=== PATIENT | female | born 1975 | race Caucasian/White ===

== ENCOUNTER → 2017-10-26 | Outpatient (CLI) | payer BC | LOC: COL.RAD 10:47 | DX: M25.541 Pain in joints of right hand (principal) | CPT/HCPCS: J3301; Q9967 ==

== ENCOUNTER → 2018-07-18 | Outpatient (CLI) | payer BC | LOC: COL.RAD 09:15 | DX: M79.644 Pain in right finger(s) (principal) | CPT/HCPCS: J3301; Q9967 ==

== ENCOUNTER → 2019-01-05 | Outpatient (CLI) | payer BC | LOC: COL.RAD 08:51 | DX: M79.644 Pain in right finger(s) (principal) | CPT/HCPCS: J3301; Q9967 ==

== ENCOUNTER → 2019-04-04 | Outpatient (CLI) | payer BC | LOC: COL.RAD 04-03 08:00 | DX: M79.644 Pain in right finger(s) (principal) | CPT/HCPCS: J3301; Q9967 ==

== ENCOUNTER 2019-05-27 20:31 | Emergency (ER) | payer BC ==
[~2019-05-27] VITALS: Ht 160 cm; Wt 86.4 kg
[2019-05-27 20:48] VITALS: BP 138/79; TEMP 98.2
[2019-05-28] MEDS ORDERED: RIOMET500 MG/5 M PO (01:06)
[2019-05-28] MEDS ORDERED: CEPHALEXIN500 M1 PO (01:11)
[2019-05-28 01:21] VITALS: PULSE 83
== END 2019-05-28 01:22 | disposition home or self-care (01) ==
LOC: COL.ER 20:31
DX: L03.031 Cellulitis of right toe (principal); E11.9 Type 2 diabetes mellitus without complications

== ENCOUNTER → 2019-09-14 | Outpatient (CLI) | payer BC ==
[~2019-09-14] MED LIST: CEPHALEXIN500 M1 PO; RIOMET500 MG/5 M PO
== END ==
LOC: COL.RAD 09:34
DX: M25.541 Pain in joints of right hand (principal)
CPT/HCPCS: J3301; Q9967

== ENCOUNTER → 2020-01-17 | Outpatient (CLI) | payer BC | LOC: COL.RAD 10:07 | DX: M79.644 Pain in right finger(s) (principal) | CPT/HCPCS: J3301; Q9967 ==

== ENCOUNTER → 2020-04-16 | Outpatient (CLI) | payer BC | LOC: COL.RAD 10:28 | DX: M79.644 Pain in right finger(s) (principal) | CPT/HCPCS: J3301; Q9967 ==

== ENCOUNTER → 2021-02-04 | Outpatient (CLI) | payer BC | LOC: MC.RAD 11:40 | DX: Z12.31 Encounter for screening mammogram for malignant neoplasm of breast (principal) ==